=== PATIENT | female | born 1985 | race Caucasian/White ===

== ENCOUNTER 2018-12-09 17:34 | Emergency (ER) | payer MEDICAID ==
[~2018-12-09] VITALS: Ht 160 cm; Wt 65.8 kg
[2018-12-09 17:41] VITALS: BP 135/80
[2018-12-09 21:00] LABS: Urine Bacteria NONE SEEN /hpf (None Seen); Urine Blood 2+ /uL (Negative); Urine Hyaline Cast FEW /lpf (0 - 2); Urine Mucus FEW (None Seen); Urine Specific Gravity 1.034 (1.001-1.035); Urine WBC 3 /hpf (0 - 5)
[2018-12-09] MEDS ORDERED: IBUPROFEN 800 MG TAB PO ONE (23:45)
[2018-12-09] MEDS ORDERED: ACETAMINOPHEN 500 MG TAB PO ONE (23:45)
== END 2018-12-10 00:22 | disposition home or self-care (01) ==
LOC: EDBD 17:34 → ER 17:37
DX: S20.212A Contusion of left front wall of thorax, initial encounter (principal); M62.838 Other muscle spasm; V43.52XA Car driver injured in collision with other type car in traffic accident, initial encounter; Y93.I9 Activity, other involving external motion; Y92.488 Other paved roadways as the place of occurrence of the external cause; Y99.8 Other external cause status
CPT/HCPCS: 71101; 81001; 93005